=== PATIENT | male | born 1955 | race Caucasian/White ===

== ENCOUNTER 2020-12-19 10:34 | Inpatient (IN) | payer OTHER ==
[~2020-12-19] VITALS: Ht 185.4 cm; Wt 83.0 kg
[~2020-12-19 10:34] MED LIST: ALBU90OI INH; MONT10T PO; NASACORT10.8 ML NS; OFLO.3OTSO BOTHEARS; OMEP20ER PO; SYMBICORT 160-4.6 GM INH; TIOT18 INH; TRAM50 PO; Ventolin Soln3 ML INH
[2020-12-19 11:11] LABS: BASOPHILS PERCENT AUTO 0 % (0-2); EOSINOPHILS PERCENT AUTO 0 % (0-6); Hematocrit 47.2 % (37.0-53.0); Hemoglobin 16.3 g/dL (13.5-17.5); IMMATURE GRAN ABSOLUTE AUTO 0.47 K/mm3 (0.00-0.10); IMMATURE GRAN PERCENT AUTO 2 % (0-1); LYMPHOCYTES ABSOLUTE AUTO 0.81 K/mm3 (0.84-5.20); LYMPHOCYTES PERCENT AUTO 3 % (21-46); MONOCYTES ABSOLUTE AUTO 1.62 K/mm3 (0.16-1.47); MONOCYTES PERCENT AUTO 5 % (4-13); Mean Corpuscular HGB 31.8 pg (26.0-34.0); Mean Corpuscular HGB Conc 34.5 g/dL (31.5-36.5); Mean Corpuscular Volume 92 fL (80-100); Mean Platelet Volume 8.9 fL (9.1-12.4); NEUTROPHILS ABSOLUTE AUTO 28.59 K/mm3 (1.96-9.15); NEUTROPHILS PERCENT AUTO 91 % (41-73); Platelet Count 253 K/mm3 (150-400); RDW Coefficient Variation 13.5 % (11.7-14.2); RDW Standard Deviation 46.4 fL (35.1-46.3); Red Blood Cell Count 5.12 M/mm3 (4.30-5.90); White Blood Cell Count 31.59 K/mm3 (4.00-11.30)
[2020-12-19 11:32] LABS: Alanine Aminotransfer (ALT/SGP 26 U/L (12-78); Albumin, Blood 3.9 g/dL (3.4-5.0); Albumin/Globulin Ratio 1.1 (0.8-1.8); Alk Phos 57 U/L (50-136); Anion Gap 7 mmol/L (6-16); Aspartate Aminotrans (AST/SGOT 27 U/L (12-37); Bilirubin, Total 2.5 mg/dL (0.1-1.0); Blood Urea Nitrogen 23 mg/dL (8-24); Bun/Creatinine Ratio 22.8 (12.0-20.0); CO2, Blood 27 mmol/L (21-32); Calcium, Blood 9.3 mg/dL (8.5-10.1); Chloride, Blood 100 mmol/L (98-108); Creatinine, Blood 1.01 mg/dL (0.60-1.20); Globulin, Blood 3.7 g/dL (2.2-4.0); Glomerular Filtration Rate >60 (60-); Glucose, Blood 108 mg/dL (70-99); Potassium, Blood 4.2 mmol/L (3.5-5.5); Sodium, Blood 134 mmol/L (136-145); Total Protein, Blood 7.6 g/dL (6.4-8.2); Troponin I <0.015 ng/mL (0.000-0.040)
--- NOTE | 2020-12-19 16:31 | NUR ---
SHIFT AND ADMIT SUMMARY PT ARRIVED TO UNIT @ APPROX 1550 VIA GURNEY, ABLE TO STAND AND AMBULATE TO BED c SBA ONLY. PT APPEARS STABLE ON FEET. VSS, ON RA, REPORTS SOME PAIN IN HIS LEFT CHEST BUT HAS IMPROVED SINCE PAIN MEDICATIONS PROVIDED IN ED. LUNG SOUNDS CLEAR/DIMINISHED. DAUGHTER TO BRING HOME CPAP FOR PT. ADMISSION FORMS COMPLETED AND HOME MEDICATIONS REVIEWED c PT. TOX URINE SAMPLE COLLECTED. FLUIDS STARTED PER EMAR. PT IS CURRENTLY RESTING IN BED c CALL LIGHT WITHIN REACH, PT INSTRUCTED ON HOW TO USE CALL SYSTEM.
[2020-12-19 16:57] LABS: U Amphetamine Screen Not Detected; U Barbituate Screen Not Detected; U Benzodiazapine Screen Not Detected; U Buprenorphine Screen Not Detected; U Cannabinoids Screen Not Detected; U Cocaine Screen Not Detected; U Methadone Screen Not Detected; U Methamphetamine Screen Not Detected; U Opiates Screen Not Detected; U Oxycodone Screen Not Detected; U Phencyclidine Screen Not Detected; U Propoxyphene Screen Not Detected
--- NOTE | 2020-12-20 04:10 | NUR ---
RECEIVED PATIENT IN BED. PATIENT IS A&OX4, ABLE TO MAKE NEEDS KNOWN. LUNG SOUNDS DIMINISHED IN ALL QUADRANTS. PATIENT C/O PAIN IN LEFT SIDE CHEST. PRN MEDICATION FOR PAIN ADMINISTERED PER EMAR. PATIENT TOLERATED WELL. PATIENT IS INDEPENDENT AND A STANDBY ASSIST. PATIENT IS MED COMPLIANT. SAFETY MEASURES IN PLACE. WILL CONTINUE TO MONITOR
[2020-12-20 05:00] LABS: BASOPHILS ABSOLUTE AUTO 0.08 K/mm3 (0.00-0.23); BASOPHILS PERCENT AUTO 0 % (0-2); EOSINOPHILS ABSOLUTE AUTO 0.07 K/mm3 (0.00-0.68); EOSINOPHILS PERCENT AUTO 0 % (0-6); Hematocrit 40.5 % (37.0-53.0); Hemoglobin 13.8 g/dL (13.5-17.5); IMMATURE GRAN ABSOLUTE AUTO 0.26 K/mm3 (0.00-0.10); IMMATURE GRAN PERCENT AUTO 1 % (0-1); LYMPHOCYTES ABSOLUTE AUTO 1.36 K/mm3 (0.84-5.20); LYMPHOCYTES PERCENT AUTO 6 % (21-46); MONOCYTES ABSOLUTE AUTO 1.49 K/mm3 (0.16-1.47); MONOCYTES PERCENT AUTO 7 % (4-13); Mean Corpuscular HGB 31.6 pg (26.0-34.0); Mean Corpuscular HGB Conc 34.1 g/dL (31.5-36.5); Mean Corpuscular Volume 93 fL (80-100); Mean Platelet Volume 8.9 fL (9.1-12.4); NEUTROPHILS ABSOLUTE AUTO 18.91 K/mm3 (1.96-9.15); NEUTROPHILS PERCENT AUTO 85 % (41-73); Platelet Count 212 K/mm3 (150-400); RDW Coefficient Variation 13.7 % (11.7-14.2); RDW Standard Deviation 46.5 fL (35.1-46.3); Red Blood Cell Count 4.37 M/mm3 (4.30-5.90); White Blood Cell Count 22.17 K/mm3 (4.00-11.30)
[2020-12-20 05:22] LABS: Alanine Aminotransfer (ALT/SGP 21 U/L (12-78); Albumin/Globulin Ratio 0.9 (0.8-1.8); Alk Phos 51 U/L (50-136); Anion Gap 5 mmol/L (6-16); Aspartate Aminotrans (AST/SGOT 15 U/L (12-37); Bilirubin, Total 2.6 mg/dL (0.1-1.0); Blood Urea Nitrogen 21 mg/dL (8-24); Bun/Creatinine Ratio 18.6 (12.0-20.0); CO2, Blood 27 mmol/L (21-32); Calcium, Blood 8.6 mg/dL (8.5-10.1); Chloride, Blood 103 mmol/L (98-108); Creatinine, Blood 1.13 mg/dL (0.60-1.20); Globulin, Blood 3.3 g/dL (2.2-4.0); Glomerular Filtration Rate >60 (60-); Glucose, Blood 113 mg/dL (70-99); Magnesium, Blood 2.2 mg/dL (1.6-2.4); Potassium, Blood 4.1 mmol/L (3.5-5.5); Sodium, Blood 135 mmol/L (136-145); Total Protein, Blood 6.3 g/dL (6.4-8.2)
--- NOTE | 2020-12-20 18:14 | NUR ---
SHIFT SUMMARY PATIENT IS ALERT AND ORIENTED X4. PATIENT IS INDEPENDENT IN ROOM. PATIENT ABLE TO MAKE NEEDS KNOWN. PATIENT HAS COMPLAINED OF PAIN IN LEFT SIDE OF CHEST RELATED TO PNEUMONIA, MEDICATED PER EMAR WITH TRAMADOL. PATIENT IS MEDICATION COMPLIANT. PATIENT DESIRES TO WALK HALLWAYS DUE TO BEING STIRCRAZY AND BOREDOM. VITAL SIGNS REVIEWED. BED IN LOWEST POSITION. CALL LIGHT IN PLACE.WILL CONTINUE TO MONITOR UNTIL END OF SHIFT.
[2020-12-21 04:57] LABS: BASOPHILS ABSOLUTE AUTO 0.03 K/mm3 (0.00-0.23); BASOPHILS PERCENT AUTO 0 % (0-2); EOSINOPHILS ABSOLUTE AUTO 0.33 K/mm3 (0.00-0.68); EOSINOPHILS PERCENT AUTO 3 % (0-6); Hematocrit 38.9 % (37.0-53.0); Hemoglobin 13.4 g/dL (13.5-17.5); IMMATURE GRAN ABSOLUTE AUTO 0.03 K/mm3 (0.00-0.10); IMMATURE GRAN PERCENT AUTO 0 % (0-1); LYMPHOCYTES ABSOLUTE AUTO 1.09 K/mm3 (0.84-5.20); LYMPHOCYTES PERCENT AUTO 11 % (21-46); MONOCYTES PERCENT AUTO 7 % (4-13); Mean Corpuscular HGB 31.4 pg (26.0-34.0); Mean Corpuscular HGB Conc 34.4 g/dL (31.5-36.5); Mean Corpuscular Volume 91 fL (80-100); Mean Platelet Volume 8.8 fL (9.1-12.4); NEUTROPHILS ABSOLUTE AUTO 7.76 K/mm3 (1.96-9.15); NEUTROPHILS PERCENT AUTO 78 % (41-73); Platelet Count 211 K/mm3 (150-400); RDW Coefficient Variation 13.5 % (11.7-14.2); RDW Standard Deviation 45.9 fL (35.1-46.3); Red Blood Cell Count 4.27 M/mm3 (4.30-5.90); White Blood Cell Count 9.94 K/mm3 (4.00-11.30)
[2020-12-21 05:47] LABS: Alanine Aminotransfer (ALT/SGP 19 U/L (12-78); Albumin, Blood 2.8 g/dL (3.4-5.0); Albumin/Globulin Ratio 0.8 (0.8-1.8); Alk Phos 49 U/L (50-136); Anion Gap 7 mmol/L (6-16); Aspartate Aminotrans (AST/SGOT 13 U/L (12-37); Bilirubin, Total 0.9 mg/dL (0.1-1.0); Blood Urea Nitrogen 21 mg/dL (8-24); CO2, Blood 24 mmol/L (21-32); Chloride, Blood 107 mmol/L (98-108); Creatinine, Blood 0.95 mg/dL (0.60-1.20); Globulin, Blood 3.7 g/dL (2.2-4.0); Glomerular Filtration Rate >60 (60-); Glucose, Blood 99 mg/dL (70-99); Sodium, Blood 138 mmol/L (136-145); Total Protein, Blood 6.5 g/dL (6.4-8.2)
--- NOTE | 2020-12-21 17:30 | NUR ---
END OF SHIFT SUMMARY: PATIENT REPORTED PLEURETIC PAIN IN HIS LEFT CHEST TODAY. MEDICATED PER PRNS. PATIENT DENIED NEED FOR FURTHER INTERVENTION. PATIENT DENIED SHORTNESS OF BREATH, COUGH OR DIFFICULTY BREATHING. PATIENT INDEPENDENT IN THE ROOM WITHOUT SOB. LUNG SOUNDS ARE DIMINISHED AND CLEAR THROUGHOUT. PATIENT REPORTED FEELING MUCH BETTER COMPARED TO WHEN ADMITTED. PATIENT REPORTS THAT HE IS INTERESTED IN QUITTING SMOKING. PROVIDED ENCOURAGEMENT AND EDUCATION ON RESOURCES. PATIENT REPORTS HE FEELS READY FOR DISCHARGE. PATIENT EATING WITHOUT NAUSEA OR ABDOMINAL CRAMPING.
[2020-12-21] MEDS ORDERED: BENZ100A PO (18:39)
[2020-12-21] MEDS ORDERED: GUAI600T33 PO (18:40)
[2020-12-21] MEDS ORDERED: CEPH500 PO (18:41)
[2020-12-21] MEDS ORDERED: LACT PO (18:41)
--- NOTE | 2020-12-21 19:39 | NUR ---
DISCHARGE SUMMARY: 9587 PATIENT READY FOR DISCHARGE. PATIENT DISCHARGE RX FAXED TO [facility] IN [place] PER PATIENT REQUEST. DISCHARGE INSTRUCTIONS AND EDUCATION PROVIDED TO PATIENT. ALL QUESTIONS AND CONCERNS ADDRESSED. VERIFIED WITH DR. CARLSON THAT THE PATIENT SHOULD DISCHARGE ON ANTIBIOTIC. NEW ORDERS RECEIVED. PATIENT DISCHARGED IN WHEELCHAIR WITH RN. PATIENT STABLE AT TIME OF DISCHARGE.
== END 2020-12-21 19:00 | disposition home or self-care (01) | DRG 871 ==
LOC: ER 10:34 → MEDS 14:03
PROVIDERS: Emergency Medicine; Nurse Practitioner Acute Care; Student in an Organized Health Care Education/Training Program; ADMIT Internal Medicine
DX: A40.3 Sepsis due to Streptococcus pneumoniae (principal); J13 Pneumonia due to Streptococcus pneumoniae; M79.7 Fibromyalgia; G47.33 Obstructive sleep apnea (adult) (pediatric); J43.9 Emphysema, unspecified; K21.9 Gastro-esophageal reflux disease without esophagitis; F17.210 Nicotine dependence, cigarettes, uncomplicated; Z99.89 Dependence on other enabling machines and devices; Z98.890 Other specified postprocedural states; Z79.51 Long term (current) use of inhaled steroids; Z79.899 Other long term (current) drug therapy
CPT/HCPCS: 36415; 71046; 71260; 80053; 83605; 83735; 84484; 85025; 87040; 87070; 87186; 87205; 87449; 93005; 93010; 94640; 94664; 94760; 94762; 96365; 96367; 96375; 99285-25; A9270; J0456; J0696; J1650; J2405; J3010; J7030; J7050; Q9967

== ENCOUNTER 2021-10-07 10:41 | Emergency (ER) | payer OTHER ==
[~2021-10-07] VITALS: Ht 182.9 cm; Wt 78.0 kg
[~2021-10-07 10:41] MED LIST changes: +BENZ100A PO; +CEPH500 PO; +GUAI600T33 PO; +LACT PO
[2021-10-07 11:11] LABS: BASOPHILS ABSOLUTE AUTO 0.05 K/mm3 (0.00-0.23); BASOPHILS PERCENT AUTO 1 % (0-2); EOSINOPHILS ABSOLUTE AUTO 0.17 K/mm3 (0.00-0.68); EOSINOPHILS PERCENT AUTO 3 % (0-6); Hematocrit 49.2 % (37.0-53.0); Hemoglobin 16.9 g/dL (13.5-17.5); IMMATURE GRAN ABSOLUTE AUTO 0.01 K/mm3 (0.00-0.10); IMMATURE GRAN PERCENT AUTO 0 % (0-1); LYMPHOCYTES PERCENT AUTO 23 % (21-46); MONOCYTES ABSOLUTE AUTO 0.57 K/mm3 (0.16-1.47); MONOCYTES PERCENT AUTO 9 % (4-13); Mean Corpuscular HGB 31.6 pg (26.0-34.0); Mean Corpuscular HGB Conc 34.3 g/dL (31.5-36.5); Mean Corpuscular Volume 92 fL (80-100); Mean Platelet Volume 8.9 fL (9.1-12.4); NEUTROPHILS ABSOLUTE AUTO 4.01 K/mm3 (1.96-9.15); NEUTROPHILS PERCENT AUTO 65 % (41-73); Platelet Count 318 K/mm3 (150-400); RDW Standard Deviation 43.8 fL (35.1-46.3); Red Blood Cell Count 5.34 M/mm3 (4.30-5.90); White Blood Cell Count 6.21 K/mm3 (4.00-11.30)
[2021-10-07 11:36] LABS: Albumin, Blood 4.5 g/dL (3.4-5.0); Albumin/Globulin Ratio 1.4 (0.8-1.8); Bilirubin, Total 1.1 mg/dL (0.1-1.0); Bun/Creatinine Ratio 15.7 (12.0-20.0); Calcium, Blood 9.7 mg/dL (8.5-10.1); Creatinine, Blood 0.89 mg/dL (0.60-1.20); Globulin, Blood 3.3 g/dL (2.2-4.0); Potassium, Blood 4.4 mmol/L (3.5-5.5); Total Protein, Blood 7.8 g/dL (6.4-8.2)
== END 2021-10-07 14:30 | disposition home or self-care (01) ==
LOC: ER 10:41
PROVIDERS: Physician Assistant
DX: R07.89 Other chest pain (principal); R00.2 Palpitations; J44.9 Chronic obstructive pulmonary disease, unspecified; I10 Essential (primary) hypertension; Z79.899 Other long term (current) drug therapy; F17.210 Nicotine dependence, cigarettes, uncomplicated
CPT/HCPCS: 36415; 71046; 80053; 83690; 83735; 83880; 84484; 85025; 93005; 93010

== ENCOUNTER → 2022-07-11 | Outpatient (CLI) | payer MEDICARE, OTHER ==
[2022-07-11 14:58] LABS: BASOPHILS ABSOLUTE AUTO 0.08 K/mm3 (0.00-0.23); BASOPHILS PERCENT AUTO 1 % (0-2); EOSINOPHILS PERCENT AUTO 2 % (0-6); Hematocrit 48.6 % (37.0-53.0); Hemoglobin 16.6 g/dL (13.5-17.5); IMMATURE GRAN ABSOLUTE AUTO 0.03 K/mm3 (0.00-0.10); IMMATURE GRAN PERCENT AUTO 0 % (0-1); LYMPHOCYTES ABSOLUTE AUTO 1.62 K/mm3 (0.84-5.20); LYMPHOCYTES PERCENT AUTO 16 % (21-46); MONOCYTES ABSOLUTE AUTO 0.74 K/mm3 (0.16-1.47); MONOCYTES PERCENT AUTO 7 % (4-13); Mean Corpuscular HGB Conc 34.2 g/dL (31.5-36.5); Mean Corpuscular Volume 91 fL (80-100); Mean Platelet Volume 8.5 fL (9.1-12.4); NEUTROPHILS ABSOLUTE AUTO 7.52 K/mm3 (1.96-9.15); NEUTROPHILS PERCENT AUTO 74 % (41-73); Platelet Count 337 K/mm3 (150-400); RDW Coefficient Variation 13.4 % (11.7-14.2); RDW Standard Deviation 44.2 fL (35.1-46.3); Red Blood Cell Count 5.36 M/mm3 (4.30-5.90); White Blood Cell Count 10.19 K/mm3 (4.00-11.30)
[2022-07-11 15:06] LABS: Albumin, Blood 4.5 g/dL (3.4-5.0); Albumin/Globulin Ratio 1.2 (0.8-1.8); Bilirubin, Total 0.7 mg/dL (0.1-1.0); Bun/Creatinine Ratio 15.7 (12.0-20.0); Calcium, Blood 9.9 mg/dL (8.5-10.1); Creatinine, Blood 1.02 mg/dL (0.60-1.20); Globulin, Blood 3.8 g/dL (2.2-4.0); Potassium, Blood 4.1 mmol/L (3.5-5.5); Total Protein, Blood 8.3 g/dL (6.4-8.2)
== END | disposition home or self-care (01) ==
LOC: LAB 14:49 → LAB SHORT 14:49
PROVIDERS: Chiropractor
DX: R10.13 Epigastric pain (principal); R06.09 Other forms of dyspnea
CPT/HCPCS: 80053; 83690; 84484; 85025; 85379

== ENCOUNTER → 2023-03-03 | Outpatient (CLI) | payer MEDICARE, OTHER ==
[~2023-03-03] MED LIST changes: +ASPIRIN REGIMEN81 MG PO; +BUDESONIDE-FO10.2 G2 INH; +COMBIVENT RESPIM4 G1 INH; +Prednisone10 MG PO
[2023-03-03 12:27] LABS: BASOPHILS ABSOLUTE AUTO 0.02 K/mm3 (0.00-0.23); BASOPHILS PERCENT AUTO 0 % (0-2); EOSINOPHILS ABSOLUTE AUTO 0.07 K/mm3 (0.00-0.68); EOSINOPHILS PERCENT AUTO 1 % (0-6); Hematocrit 51.4 % (37.0-53.0); Hemoglobin 17.1 g/dL (13.5-17.5); IMMATURE GRAN ABSOLUTE AUTO 0.01 K/mm3 (0.00-0.10); IMMATURE GRAN PERCENT AUTO 0 % (0-1); LYMPHOCYTES ABSOLUTE AUTO 0.78 K/mm3 (0.84-5.20); LYMPHOCYTES PERCENT AUTO 15 % (21-46); MONOCYTES ABSOLUTE AUTO 0.52 K/mm3 (0.16-1.47); MONOCYTES PERCENT AUTO 10 % (4-13); Mean Corpuscular HGB 31.1 pg (26.0-34.0); Mean Corpuscular HGB Conc 33.3 g/dL (31.5-36.5); Mean Corpuscular Volume 94 fL (80-100); Mean Platelet Volume 9.1 fL (9.1-12.4); NEUTROPHILS ABSOLUTE AUTO 3.86 K/mm3 (1.96-9.15); NEUTROPHILS PERCENT AUTO 73 % (41-73); Platelet Count 194 K/mm3 (150-400); RDW Standard Deviation 44.8 fL (35.1-46.3); White Blood Cell Count 5.26 K/mm3 (4.00-11.30)
[2023-03-03 12:38] LABS: Albumin, Blood 4.3 g/dL (3.4-5.0); Bilirubin, Total 0.4 mg/dL (0.1-1.0); Calcium, Blood 9.4 mg/dL (8.5-10.1); Creatinine, Blood 1.21 mg/dL (0.60-1.20); Globulin, Blood 4.1 g/dL (2.2-4.0); Potassium, Blood 4.1 mmol/L (3.5-5.5); Total Protein, Blood 8.4 g/dL (6.4-8.2)
== END ==
LOC: LAB SHORT 12:23 → LAB 12:23
PROVIDERS: Physician Assistant
DX: R00.2 Palpitations (principal)
CPT/HCPCS: 80053; 84484; 85025

== ENCOUNTER 2023-03-05 08:43 | Inpatient (IN) | payer MEDICARE, OTHER ==
[~2023-03-05] VITALS: Ht 185.4 cm; Wt 69.0 kg
[~2023-03-05 08:43] MED LIST changes: -ASPIRIN REGIMEN81 MG PO; -BUDESONIDE-FO10.2 G2 INH; -COMBIVENT RESPIM4 G1 INH; -Prednisone10 MG PO
[2023-03-05 09:05] LABS: BASOPHILS ABSOLUTE AUTO 0.03 K/mm3 (0.00-0.23); BASOPHILS PERCENT AUTO 0 % (0-2); EOSINOPHILS PERCENT AUTO 0 % (0-6); Hematocrit 47.6 % (37.0-53.0); IMMATURE GRAN ABSOLUTE AUTO 0.03 K/mm3 (0.00-0.10); IMMATURE GRAN PERCENT AUTO 0 % (0-1); LYMPHOCYTES PERCENT AUTO 17 % (21-46); MONOCYTES ABSOLUTE AUTO 0.83 K/mm3 (0.16-1.47); MONOCYTES PERCENT AUTO 9 % (4-13); Mean Corpuscular HGB 31.1 pg (26.0-34.0); Mean Corpuscular HGB Conc 33.6 g/dL (31.5-36.5); Mean Corpuscular Volume 93 fL (80-100); Mean Platelet Volume 9.1 fL (9.1-12.4); NEUTROPHILS ABSOLUTE AUTO 6.96 K/mm3 (1.96-9.15); NEUTROPHILS PERCENT AUTO 74 % (41-73); Platelet Count 218 K/mm3 (150-400); RDW Coefficient Variation 12.8 % (11.7-14.2); RDW Standard Deviation 44.2 fL (35.1-46.3); Red Blood Cell Count 5.14 M/mm3 (4.30-5.90); White Blood Cell Count 9.45 K/mm3 (4.00-11.30)
[2023-03-05 09:11] LABS: Bicarbonate Venous 24.3 mmol/L (24.0-30.0); PCO2 Venous 61.5 mmHg (38-42); pH Blood Venous 7.29 (7.34-7.37)
[2023-03-05] MEDS ORDERED: Prednisone10 MG PO (09:13)
[2023-03-05] MEDS ORDERED: MONT10T PO (09:14)
[2023-03-05] MEDS ORDERED: COMBIVENT RESPIM4 G1 INH (09:14)
[2023-03-05] MEDS ORDERED: BUDESONIDE-FO10.2 G2 INH (09:14)
[2023-03-05] MEDS ORDERED: TRAM50 PO (09:14)
[2023-03-05] MEDS ORDERED: ASPIRIN REGIMEN81 MG PO (09:15)
[2023-03-05 09:16] LABS: Albumin, Blood 3.8 g/dL (3.4-5.0); Bilirubin, Total 0.4 mg/dL (0.1-1.0); Bun/Creatinine Ratio 25.4 (12.0-20.0); Calcium, Blood 9.2 mg/dL (8.5-10.1); Creatinine, Blood 0.83 mg/dL (0.60-1.20); Globulin, Blood 3.9 g/dL (2.2-4.0); Magnesium, Blood 1.9 mg/dL (1.6-2.4); Potassium, Blood 4.3 mmol/L (3.5-5.5); Total Protein, Blood 7.7 g/dL (6.4-8.2)
[2023-03-05 10:02] LABS: Influenza A, PCR POSITIVE (NEGATIVE); Influenza B, PCR NEGATIVE (NEGATIVE); Resp Syncytial Virus, PCR NEGATIVE (NEGATIVE); SARS-Cov-2 (COVID-19) PCR, MMC NEGATIVE (NEGATIVE)
[2023-03-05 14:15] VITALS: BP 147/95
[2023-03-05] MEDS ORDERED: OMEP20ER PO (14:20)
--- NOTE | 2023-03-05 14:55 | NUR ---
PATIENT ADMIT TO PCU 05 AT 1405. ABLE TO STAND AND TRANSFER WITH ONE PERSON ASSIST TO HELP MANAGE LINES/CORDS. DENIES HEADACHE/VISION CHANGES. PERRLA. DENIES NUMBNESS/TINGLING. MOVING ALL EXTREMITIES WNL. NO DEFICITS NOTED. ON BIPAP SETTINGS 8/4 AT 25% FIO2 SATING HIGH 90'S. EVEN RESPIRATIONS. SOB WITH TALKING AND MOVING AROUND. PATIENT STATES AT BASELINE HE WEARS 1L BLEED INTO CPAP AT NIGHT. DAUGHTER TO BRING IN HOME CPAP. OCCASIONAL PRODUCTIVE MOIST/LOOSE COUGH. NEEDING SPUTUM SAMPLE. TELE SHOWING SR WITH HR 60-80'S. DENIES CHEST PAIN/PRESSURE/PALPITATIONS. DENIES ANY KNOWN CARDIAC HISTORY. BP STABLE. PPP. NO SIGNS OF EDEMA. DENIES ABDOMINAL PAIN/NAUSEA. CURRENTLY NPO AT THIS TIME. BOWEL TONES PRESENT. PATIENT STATES HE NORMALLY EATS AND DRINKS WITH NO SWALLOWING ISSUES. USING URINAL. DENIES ISSUES WITH VOIDING. SKIN OVERALL PALE AND WARM TO TOUCH. SCATTERED BRUISING AND RAISED MOLES COVERING CHEST AND BACK. THIS RN SPOKE WITH DORIE ON PHONE TO GIVE UPDATE. THIS RN ABLE TO COMPLETE MED REC WITH DORIE OVER PHONE. CALL LIGHT IN REACH. PATIENT UPDATED ON PCU AND HOSP POLICY. PATIENT REQUESTING DNR CODE STATUS, DNR BAND PLACED ON LEFT WRIST. LR INFUSING PER EMAR.
[2023-03-05 15:09] VITALS: BP 140/82
[2023-03-05 16:00] LABS: Base Excess Venous 2.6 mmol/L; Bicarbonate Venous 25.4 mmol/L (24.0-30.0); pH Blood Venous 7.39 (7.34-7.37)
--- NOTE | 2023-03-05 18:00 | NUR ---
SHIFT SUMMARY: RT IN TO ASSESS PATIENT AND ABLE TO TITRATE DOWN TO 2L NASAL CANNULA FOR EXTENDED PERIOD OF TIME. DURING THIS TIME PATIENT ABLE TO EAT AND DRINK WATER. PATIENT WORK OF BREATHING RECENTLY INCREASED, AND BIPAP REPLACED BY THIS RN, RT UPDATED. USING URINAL TO VOID IND. FAN PLACED IN ROOM FOR COMFORT. NO TELE EVENTS, REMAINS SR WITH HR 70-80'S. DENIES PAIN. LR CONTINUES TO INFUSE. CALL LIGHT IN REACH. DENIES NEEDS AT THIS TIME.
--- NOTE | 2023-03-05 18:34 | NUR ---
PATIENT COMPLAINS OF 2/10 HEADACHE AND 4/10 CHRONIC SHOULDER PAIN. MEDICATED PER EMAR FOR PAIN. BIPAP REMAINS IN PLACE. PATIENT COMPLAINS OF JUST FEELING UNCOMFORTABLE. MORE PILLOWS PROVIDED FOR SUPPORT. CALL LIGHT IN REACH.
[2023-03-05 20:02] VITALS: BP 127/89
[2023-03-05 23:44] VITALS: BP 136/76
[2023-03-06 03:29] VITALS: BP 152/99
[2023-03-06 04:01] LABS: Hemoglobin 15.1 g/dL (13.5-17.5); Mean Corpuscular HGB 31.4 pg (26.0-34.0); Mean Corpuscular HGB Conc 34.3 g/dL (31.5-36.5); Mean Corpuscular Volume 92 fL (80-100); Mean Platelet Volume 9.7 fL (9.1-12.4); Platelet Count 187 K/mm3 (150-400); RDW Coefficient Variation 12.8 % (11.7-14.2); RDW Standard Deviation 43.2 fL (35.1-46.3); Red Blood Cell Count 4.81 M/mm3 (4.30-5.90); White Blood Cell Count 5.08 K/mm3 (4.00-11.30)
[2023-03-06 04:19] LABS: Bun/Creatinine Ratio 25.2 (12.0-20.0); Calcium, Blood 9.2 mg/dL (8.5-10.1); Creatinine, Blood 0.71 mg/dL (0.60-1.20)
--- NOTE | 2023-03-06 04:40 | NUR ---
SHIFT SUMMARY THIS RN ASSUMED CARE OF PATIENT AT 1900. PT A&O X4. ABLE TO MAKE NEEDS KNOWN. WORE BIPAP FOR MOST OF THE NIGHT BUT REQUESTED FREQUENT BREAKS OF AT LEAST AN HOUR. PT ON 2L VIA NC WITH SPO2 >92%. NO RESPIRATORY DISTRESS NOTED. TACHYPNEA NOTED AT BEGINNING OF SHIFT WHEN PATIENT APPEARED MORE ANXIOUS. OTHERWISE RR 14-18 MOST OF THE SHIFT. DYSPNEA NOTED WITH EXERTION. PT ABLE TO SPEAK IN FULL SENTENCES. OCCASIONAL ACCESSORY MUSCLE USE. PRN BREATHING TREATMENTS. PT MEDICATED WITH PRN PO ANXIETY MEDICATION; REFUSED IV ANXIETY MEDICATION. THIS RN EDUCATED PT ON ANXIETY/COPD. PT CONTINUED TO DECLINE NEED FOR ATIVAN. BP STABLE. SR WITH HR 60'S. AFEBRILE. GUILLEN. PPP. ABLE TO REPOSITION SELF AND INDEPENDENT WITH URINAL USE. BED IN LOWEST POSITION AND CALL LIGHT WITHIN REACH. THIS RN WILL REPORT TO ONCOMING DAYSHIFT RN.
[2023-03-06 05:17] LABS: BAND PERCENT MAN 3 % (0-8); BASOPHILS PERCENT MAN 0 % (0-2); EOSINOPHILS PERCENT MAN 0 % (0-6); LYMPHOCYTES % ATYPICAL MANUAL 1 % (0-0); LYMPHOCYTES PERCENT MAN 7 % (21-46); MONOCYTES ABSOLUTE MAN 0.35 K/mm3 (0.16-1.47); MONOCYTES PERCENT MAN 7 % (4-13); NEUTROPHILS ABSOLUTE MAN 4.31 K/mm3 (1.96-9.15); SEG NEUTROPHILS PERCENT MAN 82 % (41-73); TOTAL CELLS COUNTED 100
[2023-03-06 08:00] VITALS: BP 147/83
[2023-03-06 12:12] VITALS: BP 156/91
[2023-03-06 15:25] VITALS: BP 155/95
--- NOTE | 2023-03-06 19:27 | NUR ---
END OF SHIFT PT A&O X4. VSS. SPO2 > 92% ON 2L NC. BREATHING TXs PER RT. MONITOR SHOWING SR, HR 60s-80s. PT UP TO CHAIR MOST OF DAY, ABLE TO AMBULATE INTO BATHROOM W/ 1 PERSON ASSIST. NO EVENTS THIS SHIFT.
[2023-03-06 20:37] VITALS: BP 149/100
[2023-03-07] VITALS (8 sets, daily range): BP systolic 151–171; BP diastolic 89–105
[2023-03-07 04:12] LABS: BASOPHILS ABSOLUTE AUTO 0.02 K/mm3 (0.00-0.23); BASOPHILS PERCENT AUTO 0 % (0-2); EOSINOPHILS PERCENT AUTO 0 % (0-6); Hematocrit 45.9 % (37.0-53.0); Hemoglobin 15.7 g/dL (13.5-17.5); IMMATURE GRAN ABSOLUTE AUTO 0.03 K/mm3 (0.00-0.10); IMMATURE GRAN PERCENT AUTO 0 % (0-1); LYMPHOCYTES ABSOLUTE AUTO 0.66 K/mm3 (0.84-5.20); LYMPHOCYTES PERCENT AUTO 6 % (21-46); MONOCYTES ABSOLUTE AUTO 0.51 K/mm3 (0.16-1.47); MONOCYTES PERCENT AUTO 5 % (4-13); Mean Corpuscular HGB Conc 34.2 g/dL (31.5-36.5); Mean Corpuscular Volume 91 fL (80-100); Mean Platelet Volume 9.3 fL (9.1-12.4); NEUTROPHILS ABSOLUTE AUTO 9.62 K/mm3 (1.96-9.15); NEUTROPHILS PERCENT AUTO 89 % (41-73); Platelet Count 244 K/mm3 (150-400); RDW Coefficient Variation 12.9 % (11.7-14.2); RDW Standard Deviation 42.9 fL (35.1-46.3); Red Blood Cell Count 5.06 M/mm3 (4.30-5.90); White Blood Cell Count 10.84 K/mm3 (4.00-11.30)
[2023-03-07 04:33] LABS: Bun/Creatinine Ratio 27.1 (12.0-20.0); Calcium, Blood 9.4 mg/dL (8.5-10.1); Creatinine, Blood 0.7 mg/dL (0.60-1.20); Potassium, Blood 4.2 mmol/L (3.5-5.5)
--- NOTE | 2023-03-07 05:07 | NUR ---
SHIFT SUMMARY PT A&O X4. ABLE TO MAKE NEEDS KNOWN. PT APPEARED MORE ANXIOUS DURING THIS SHIFT THAN PREVIOUS NOC SHIFT. PRN PO MEDICATIONS GIVEN. PT EDUCATED CONSISTENTLY ABOUT COPD AND ANXIETY MANAGEMENT. PT REFUSING BREATHING TREATMENTS FROM RT. RT EDUCATED PT REGARDING MEDICATIONS. PT CONTINUES TO REFUSE DESPITE EDUCATION. PT NOW ON 4-5L VIA NC WHILE AWAKE. CPAP FOR NOC. PT USING URINAL INDEPENDENTLY. PT HAVING ANXIETY AND INCREASED SOB WITH EXERTION AND URINAL USE. OTHERWISE OTHER VITALS STABLE. OCCASIONAL WHEEZING/TIGHTNESS NOTED IN LS, OTHERWISE LS DIM T/O. BED IN LOWEST POSITION AND CALL LIGHT WITHIN REACH. THIS RN WILL REPORT TO ONCOMING DAYSHIFT RN.
[2023-03-07 08:41] LABS: Base Excess Venous 9.9 mmol/L; Bicarbonate Venous 29.9 mmol/L (24.0-30.0); PCO2 Venous 54.2 mmHg (38-42); pH Blood Venous 7.41 (7.34-7.37)
--- NOTE | 2023-03-07 10:24 | NUR ---
CARE ASSUMPTION PT A&O X4, ANXIOUS THIS AM. SPO2 > 92% ON 4L NC. 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 PT AGREEABLE TO WEAR CPAP, CPAP PLACED. MD VARGAS W/ ORDER FOR VBG, PRN PO HYDROXIZINE & PALLIATIVE CARE. UPON RETURN TO W/ HYDROXIZINE, PT STATING "I SHOULD HAVE WORN THIS CPAP SOONER. I FEEL BETTER ALREADY." PT REMARKING MULTIPLE TIMES "I SHOULD HAVE DONE ALL OF THIS SOONER. I SHOULDN'T HAVE SAID NO." PT APPEARS MORE CALM IN RM & BREATHING MORE COMFORTABLY W/ CPAP IN PLACE.
--- NOTE | 2023-03-07 18:06 | NUR ---
END OF SHIFT PT A&O X4. PT LESS ANXIOUS REST OF THE SHIFT, PRN PO HYDROXYZINE GIVEN PER EMAR X2 THIS SHIFT. PT SITTING UP IN CHAIR MAJORITY OF DAY. PT MEDICATED FOR PAIN PER EMAR X1 THIS SHIFT FOR PAIN IN "BACK & EVERYWHERE" W/ PT STATING "I HAVE FIBROMYALGIA, SO EVERYTHING ACHES." PT REPORTING FEELING "PERFECT" UPON PAIN REASSESSMENT AFTER MEDICATION. PT SPO2 > 92% ON 2-4L NC THIS SHIFT & INTERMITTENTLY WEARING CPAP. MONITOR SHOWING SR, HR 70s-90s.
[2023-03-08 03:55] VITALS: BP 146/101
[2023-03-08 04:00] LABS: BASOPHILS ABSOLUTE AUTO 0.02 K/mm3 (0.00-0.23); BASOPHILS PERCENT AUTO 0 % (0-2); EOSINOPHILS PERCENT AUTO 0 % (0-6); Hematocrit 43.6 % (37.0-53.0); Hemoglobin 14.9 g/dL (13.5-17.5); IMMATURE GRAN ABSOLUTE AUTO 0.06 K/mm3 (0.00-0.10); IMMATURE GRAN PERCENT AUTO 0 % (0-1); LYMPHOCYTES ABSOLUTE AUTO 0.64 K/mm3 (0.84-5.20); LYMPHOCYTES PERCENT AUTO 5 % (21-46); MONOCYTES ABSOLUTE AUTO 0.53 K/mm3 (0.16-1.47); MONOCYTES PERCENT AUTO 4 % (4-13); Mean Corpuscular HGB 31.2 pg (26.0-34.0); Mean Corpuscular HGB Conc 34.2 g/dL (31.5-36.5); Mean Corpuscular Volume 91 fL (80-100); Mean Platelet Volume 9.2 fL (9.1-12.4); NEUTROPHILS ABSOLUTE AUTO 12.12 K/mm3 (1.96-9.15); NEUTROPHILS PERCENT AUTO 91 % (41-73); Platelet Count 251 K/mm3 (150-400); RDW Coefficient Variation 12.9 % (11.7-14.2); RDW Standard Deviation 43.7 fL (35.1-46.3); Red Blood Cell Count 4.77 M/mm3 (4.30-5.90); White Blood Cell Count 13.37 K/mm3 (4.00-11.30)
[2023-03-08 04:15] LABS: Calcium, Blood 9.3 mg/dL (8.5-10.1); Creatinine, Blood 0.71 mg/dL (0.60-1.20); Potassium, Blood 4.2 mmol/L (3.5-5.5)
--- NOTE | 2023-03-08 05:21 | NUR ---
SHIFT SUMMARY NO ACUTE CHANGES OVERNIGHT. PT WITH LESS ANXIETY DURING THIS SHIFT THAN PREVIOUS NOC SHIFT. PT AGREEABLE TO BREATHING TREATMENTS AND ANXIETY MEDICATIONS. VITALS STABLE. 2-4L VIA NC NEEDED WHILE AWAKE. PT WEARING CPAP WHILE SLEEPING. NEURO INTACT, CALLING APPROPRIATELY. BED IN LOWEST POSITION AND CALL LIGHT WITHIN REACH. THIS RN WILL REPORT TO ONCOMING DAYSHIFT RN.
[2023-03-08 07:41] VITALS: BP 155/100
--- NOTE | 2023-03-08 09:50 | NUR ---
AM NOTE: PATIENT ALERT AND ORIENTED. VERY ANXIOUS, REQUESTING BUSPAR THIS AM. PERRLA. DENIES NUMBNESS/TINGLING. UP WITH ONE PERSON ASSIST. PATIENT VERY SOB WITH ANY EXCERTION. TELE SHOWING SR WITH HR 80-90'S. DENIES CHEST PAIN/PRESSURE/PALPITATIONS. BP STABLE. PPP. NO EDEMA NOTED. WEARING CPAP THIS AM UPON SHIFT START WITH 4L O2 BLEED IN. TITRATED TO 3L SATING MID 90'S. RR 18-24. SOB WITH ANY EXCERTION. PATIENT USING CPAP NEEDED IND. DR. VARGAS BY THIS AM, PLAN FOR CHEST XRAY THIS AFTERNOON. BOWEL TONES PRESENT. EATING AND VOIDING WNL. DENIES ABDOMINAL PAIN/NAUSEA. PATIENT COMPLAINS OF FEELING LIKE HE IS STARTING TO GET A SORE THROAT FROM POST NASAL DRIP. DR. VARGAS AWARE. SKIN SCATTERED WITH RAISED MOLES ACROSS CHEST AND BACK. SCATTERED BRUISING. PATIENT DENIES WANTING TO WEAR GOWN. CALL LIGHT IN REACH. DENIES NEEDS AT THIS TIME. SITTING UP IN RECLINER ON PERSONAL CELLPHONE. IV ABX INFUSED THIS AM.
[2023-03-08 12:05] VITALS: BP 155/103
[2023-03-08 15:23] VITALS: BP 167/101
[2023-03-08 16:11] VITALS: BP 147/102
--- NOTE | 2023-03-08 16:45 | NUR ---
PATIENT UP WALKING AROUND ROOM WITH 3L NASAL CANNULA SATING WITHIN NORMAL LIMITS. DENIES PAIN. USING CPAP NEEDED. PATIENT STATES HE IS FEELING REALLY GOOD. HR 80-90'S. BLOOD PRESSURE SLIGHTLY ELEVATED SBP 140'S AND DBP 100'S. DENIES NEEDS AT THIS TIME. SITTING UP IN RECLINER USING PERSONAL CELLPHONE.
[2023-03-08 21:36] VITALS: BP 157/108
[2023-03-09] VITALS (10 sets, daily range): BP systolic 129–179; BP diastolic 77–115
[2023-03-09 03:40] LABS: BASOPHILS ABSOLUTE AUTO 0.01 K/mm3 (0.00-0.23); BASOPHILS PERCENT AUTO 0 % (0-2); EOSINOPHILS PERCENT AUTO 0 % (0-6); Hematocrit 42.9 % (37.0-53.0); Hemoglobin 14.9 g/dL (13.5-17.5); IMMATURE GRAN ABSOLUTE AUTO 0.13 K/mm3 (0.00-0.10); IMMATURE GRAN PERCENT AUTO 1 % (0-1); LYMPHOCYTES ABSOLUTE AUTO 0.54 K/mm3 (0.84-5.20); LYMPHOCYTES PERCENT AUTO 4 % (21-46); MONOCYTES ABSOLUTE AUTO 0.52 K/mm3 (0.16-1.47); MONOCYTES PERCENT AUTO 4 % (4-13); Mean Corpuscular HGB 31.4 pg (26.0-34.0); Mean Corpuscular HGB Conc 34.7 g/dL (31.5-36.5); Mean Corpuscular Volume 91 fL (80-100); NEUTROPHILS ABSOLUTE AUTO 13.27 K/mm3 (1.96-9.15); NEUTROPHILS PERCENT AUTO 92 % (41-73); Platelet Count 283 K/mm3 (150-400); RDW Coefficient Variation 12.9 % (11.7-14.2); RDW Standard Deviation 42.6 fL (35.1-46.3); Red Blood Cell Count 4.74 M/mm3 (4.30-5.90); White Blood Cell Count 14.47 K/mm3 (4.00-11.30)
[2023-03-09 04:06] LABS: Bun/Creatinine Ratio 35.6 (12.0-20.0); Calcium, Blood 9.1 mg/dL (8.5-10.1); Creatinine, Blood 0.7 mg/dL (0.60-1.20); Potassium, Blood 4.1 mmol/L (3.5-5.5)
--- NOTE | 2023-03-09 04:53 | NUR ---
SHIFT SUMMARY: A&OX4. INTERMITTENT ANXIETY DURING THIS SHIFT. COOPERATIVE WITH ANXIETY MEDICATIONS, REPORTS GOOD RELIEF WITH ANXIETY MEDS. DENIES ANY CHEST PAIN. REOPORTS "TIGHTNESS IN CHEST" WHILE ANXIOUS, IMPROVES WITH ANXIETY MEDICATIONS. HR IS SR IN 80'S. BP'S CONTINUE TO BE HYPERTENSIVE. REPORTS SOB THAT HAS NOT WORSTENED. O2 SATS MAINTAINED > 90% ON 3 LPM WHILE AWAKE, CPAP WITH BLEED IN 3 WHILE SLEEPING. CALL LIGHT IN REACH. BED IN LOW POSITION.
--- NOTE | 2023-03-09 12:00 | NUR ---
AM NOTE: PATIENT ALERT AND ORIENTED. MOVING ABOUT ROOM IND. DENIES NUMBNESS/TINGLING. PERRLA. PATIENT COMPLAINS OF GENERALIZED BODY PAIN, ULTRAM GIVEN PER EMAR. PATIENT HAS INTERMIT ANXIETY, PRN MEDS GIVEN. ANXIETY SURROUNDING SOB. TELE SHOWING SR WITH HR 80-100'S. DENIES CHEST PAIN/PRESSURE/PALPITATIONS. BP SLIGHTLY ELEVATED. SC LOVENOX GIVEN PER EMAR. IV ABX INFUSED THIS AM. ON 3L NASAL CANNULA SATING 90-94%. HOME CPAP AT BEDSIDE, PATIENT USING NEEDED AND AT NOC. EVEN RESPIRATIONS. SOB WITH MOVEMENT AND ANXIETY. LUNGS SOUNDS DIMINISHED AND AT TIMES TIGHT. RT IN TO GIVE BREATHING TREATMENTS. BOWEL TONES PRESENT. EATING AND VOIDING WNL. DENIES ABDOMINAL PAIN/NAUSEA. IV SALINE LOCKED. PATIENT UP IN RECLINER WATCHING TV AND EATING LUNCH AT THIS TIME. DENIES NEEDS. CALL LIGHT IN REACH.
--- NOTE | 2023-03-09 12:28 | NUR ---
THIS RN CALLED DR. VARGAS ABOUT PATIENTS ELEVATED BLOOD PRESSURES. NO NEW ORDERS FOR THIS RN TO PLACE. DR. VARGAS TO PLACE ORDERS.
--- NOTE | 2023-03-09 17:26 | NUR ---
SHIFT SUMMARY: PATIENT REMAINS ALERT AND ORIENTED THROUGHOUT SHIFT. PRN ANXIETY MEDICATIONS NEEDED. PATIENT IS MUCH CALMER THIS EVENING AND STATES HE IS FEELING GREAT. REMAINS ON 3L NASAL CANNULA, USING HOME CPAP NEEDED. NO TELE EVENTS THIS SHIFT. REMAINS SR WITH HR 80-90'S. CURRENT BP STABLE. EATING AND VOIDING WNL. BOWEL MOVEMENT X1 THIS SHIFT. ASSISTED BED BATH COMPLETED. DENIES NEEDS AT THIS TIME. CURRENTLY SITTING IN RECLINER EATING DINNER. CALL LIGHT IN REACH.
[2023-03-10 04:07] VITALS: BP 155/103
[2023-03-10 04:38] LABS: BASOPHILS ABSOLUTE AUTO 0.01 K/mm3 (0.00-0.23); BASOPHILS PERCENT AUTO 0 % (0-2); EOSINOPHILS PERCENT AUTO 0 % (0-6); Hematocrit 49.2 % (37.0-53.0); Hemoglobin 16.7 g/dL (13.5-17.5); IMMATURE GRAN ABSOLUTE AUTO 0.21 K/mm3 (0.00-0.10); IMMATURE GRAN PERCENT AUTO 1 % (0-1); LYMPHOCYTES PERCENT AUTO 3 % (21-46); MONOCYTES ABSOLUTE AUTO 0.59 K/mm3 (0.16-1.47); MONOCYTES PERCENT AUTO 4 % (4-13); Mean Corpuscular HGB 31.2 pg (26.0-34.0); Mean Corpuscular HGB Conc 33.9 g/dL (31.5-36.5); Mean Corpuscular Volume 92 fL (80-100); Mean Platelet Volume 8.9 fL (9.1-12.4); NEUTROPHILS ABSOLUTE AUTO 15.17 K/mm3 (1.96-9.15); NEUTROPHILS PERCENT AUTO 92 % (41-73); Platelet Count 352 K/mm3 (150-400); RDW Coefficient Variation 12.9 % (11.7-14.2); RDW Standard Deviation 43.4 fL (35.1-46.3); Red Blood Cell Count 5.35 M/mm3 (4.30-5.90); White Blood Cell Count 16.48 K/mm3 (4.00-11.30)
--- NOTE | 2023-03-10 04:50 | NUR ---
SHIFT SUMMARY: A/Ox4 AND COOPERATIVE WITH CARE. ANSWERS QUESTIONS APPROPRIATELY AND ABLE TO MAKE HIS NEEDS KNOWN. NO ACUTE EVENTS OVERNIGHT FOR PT WAS ABLE TO SLEEP T/O MOST OF THE NIGHT. CARDIAC, REMAINS IN SR 80-90'S WITH NO REPORTS OF CP OR PRESSURE T/O THE NIGHT. SBP HAS BEEN MORE CONTROLLED RANGING 140-150'S. PRN HYDRALAZINE ORDERED. RESPIRATORY, MAINTAINS SPO2 90-94% ON 3L VIA NC. REPORTS INTERMITTENT EPISODES OF SOB EITHER WHEN TALKING FOR SOME TIME OR WITH MODERATE EXERTION. CONTINUES TO HAVE MOIST, NON-PRODUCTIVE COUGH. REPORTS INCREASED ANXIETY WITH BREATHING TREATMENTS. ANXIETY WELL CONTROLLED WITH PRN MEDICATIONS. GI/, ABLE TO INDEPENDENTLY WALK TO THE BATHROOM TO VOID. NO BM REPORTED THIS SHIFT. DENIES ANY N/V/D WELL. POSSIBLE D/C HOME THIS AM. ASSESSED PT FOR RISKS OF ANY IGNITION SOURCES WELL BEHAVIORS FOR INCREASED RISKS OF FIRE DANGER. PT EDUCATED ON COMMON SOURCES OF IGNITION WELL NEED TO KEEP A SAFE ENVIRONMENT. PT VOICED UNDERSTANDING. NO NEW ORDERS AT THIS TIME, WILL REPORT TO ONCOMING RN. DEYANIRA LAWSON OF THIS NOTE
[2023-03-10 04:59] LABS: Bun/Creatinine Ratio 43.4 (12.0-20.0); Calcium, Blood 9.5 mg/dL (8.5-10.1); Creatinine, Blood 0.72 mg/dL (0.60-1.20); Potassium, Blood 4.8 mmol/L (3.5-5.5)
[2023-03-10 08:43] VITALS: BP 150/101
[2023-03-10] MEDS ORDERED: ACET325 PO (11:13)
[2023-03-10] MEDS ORDERED: AMLO5 PO (11:14)
[2023-03-10] MEDS ORDERED: FLONASE SENSIM5.9 M1 (11:15)
[2023-03-10] MEDS ORDERED: GUAI600T33 PO (11:16)
[2023-03-10] MEDS ORDERED: Nicoderm Cq1 EAC1 TOP (11:17)
[2023-03-10] MEDS ORDERED: Vistaril25 MG PO (11:17)
[2023-03-10] MEDS ORDERED: HIGH POTENCY P1 EAC2 PO (11:19)
[2023-03-10] MEDS ORDERED: BUSP5 PO (11:19)
[2023-03-10] MEDS ORDERED: CEPH500 PO (11:20)
[2023-03-10] MEDS ORDERED: Prednisone10 MG PO (11:21)
--- NOTE | 2023-03-10 12:55 | NUR ---
DISCHARGE: HOME O2 EVAL COMPLETED. PT HAS BEEN CLEARED FOR DISCHARGE. ALL IV ACCESS DC'd WNL. PT DRESSES SELF. DC PAPERWORK AND INSTRUCTIONS PROVIDED, ALL QUESTIONS ANSWERED. PT ESCORTED FROM UNIT VIA W/C W/OUT INCIDENT.
== END 2023-03-10 13:08 | disposition home or self-care (01) | DRG 871 ==
LOC: ER 08:43 → PCU 11:12
PROVIDERS: Emergency Medicine; ADMIT Family Medicine
PROC: 5A09357 Assistance with Respiratory Ventilation, Less than 24 Consecutive Hours, Continuous Positive Airway Pressure (ICD-10-PCS; principal; 2023-03-05)
PROC: 3E03329 Introduction of Other Anti-infective into Peripheral Vein, Percutaneous Approach (ICD-10-PCS; 2023-03-05)
DX: A41.9 Sepsis, unspecified organism (principal); J10.00 Influenza due to other identified influenza virus with unspecified type of pneumonia; J96.01 Acute respiratory failure with hypoxia; J96.02 Acute respiratory failure with hypercapnia; J44.1 Chronic obstructive pulmonary disease with (acute) exacerbation; E87.20 Acidosis, unspecified; J44.0 Chronic obstructive pulmonary disease with (acute) lower respiratory infection; R65.20 Severe sepsis without septic shock; Z66 Do not resuscitate; D72.829 Elevated white blood cell count, unspecified; G47.30 Sleep apnea, unspecified; F17.210 Nicotine dependence, cigarettes, uncomplicated; M79.7 Fibromyalgia; T38.0X5A Adverse effect of glucocorticoids and synthetic analogues, initial encounter; F41.9 Anxiety disorder, unspecified; Z99.81 Dependence on supplemental oxygen; Z79.82 Long term (current) use of aspirin; Z79.51 Long term (current) use of inhaled steroids; Z79.52 Long term (current) use of systemic steroids; Z11.52 Encounter for screening for COVID-19
CPT/HCPCS: 0241U; 36415; 71045; 71046; 80048; 80053; 82803; 83605; 83735; 83880; 84484; 85025; 87040; 87070; 87205; 93005; 93010; 94640; 94644; 94660; 94664; 94760; 94761; 94762; 96361; 96365; 96367; 96375; 99285-25; A9270; J0360; J0456; J0696; J1650; J2060; J2930; J3475; J7030; J7050; J7120

== ENCOUNTER 2023-03-11 11:57 | Emergency (ER) | payer MEDICARE, OTHER ==
[~2023-03-11] VITALS: Ht 185.4 cm; Wt 74.8 kg
[~2023-03-11 11:57] MED LIST changes: +ACET325 PO; +AMLO5 PO; +ASPIRIN REGIMEN81 MG PO; +BUDESONIDE-FO10.2 G2 INH; +BUSP5 PO; +COMBIVENT RESPIM4 G1 INH; +FLONASE SENSIM5.9 M1; +HIGH POTENCY P1 EAC2 PO; +Nicoderm Cq1 EAC1 TOP; +Prednisone10 MG PO; +Vistaril25 MG PO
[2023-03-11 12:34] LABS: BASOPHILS ABSOLUTE AUTO 0.03 K/mm3 (0.00-0.23); BASOPHILS PERCENT AUTO 0 % (0-2); EOSINOPHILS ABSOLUTE AUTO 0.07 K/mm3 (0.00-0.68); EOSINOPHILS PERCENT AUTO 0 % (0-6); Hematocrit 51.7 % (37.0-53.0); Hemoglobin 17.7 g/dL (13.5-17.5); IMMATURE GRAN ABSOLUTE AUTO 0.15 K/mm3 (0.00-0.10); IMMATURE GRAN PERCENT AUTO 1 % (0-1); LYMPHOCYTES ABSOLUTE AUTO 1.64 K/mm3 (0.84-5.20); LYMPHOCYTES PERCENT AUTO 9 % (21-46); MONOCYTES ABSOLUTE AUTO 1.73 K/mm3 (0.16-1.47); MONOCYTES PERCENT AUTO 9 % (4-13); Mean Corpuscular HGB 31.3 pg (26.0-34.0); Mean Corpuscular HGB Conc 34.2 g/dL (31.5-36.5); Mean Corpuscular Volume 92 fL (80-100); Mean Platelet Volume 8.7 fL (9.1-12.4); NEUTROPHILS ABSOLUTE AUTO 15.33 K/mm3 (1.96-9.15); NEUTROPHILS PERCENT AUTO 81 % (41-73); Platelet Count 398 K/mm3 (150-400); RDW Coefficient Variation 12.9 % (11.7-14.2); RDW Standard Deviation 43.8 fL (35.1-46.3); Red Blood Cell Count 5.65 M/mm3 (4.30-5.90); White Blood Cell Count 18.95 K/mm3 (4.00-11.30)
[2023-03-11 12:53] LABS: Albumin, Blood 3.5 g/dL (3.4-5.0); Albumin/Globulin Ratio 0.9 (0.8-1.8); Bilirubin, Total 0.6 mg/dL (0.1-1.0); Bun/Creatinine Ratio 38.9 (12.0-20.0); Calcium, Blood 9.2 mg/dL (8.5-10.1); Creatinine, Blood 0.85 mg/dL (0.60-1.20); Globulin, Blood 3.7 g/dL (2.2-4.0); Potassium, Blood 4.5 mmol/L (3.5-5.5); Total Protein, Blood 7.2 g/dL (6.4-8.2)
[2023-03-11 13:35] VITALS: BP 127/106
== END 2023-03-11 14:03 | disposition home or self-care (01) ==
LOC: ER 11:57
PROVIDERS: Physician Assistant
DX: J44.9 Chronic obstructive pulmonary disease, unspecified (principal); I35.0 Nonrheumatic aortic (valve) stenosis; M79.7 Fibromyalgia; F17.210 Nicotine dependence, cigarettes, uncomplicated; Z79.52 Long term (current) use of systemic steroids; Z79.51 Long term (current) use of inhaled steroids; Z79.82 Long term (current) use of aspirin; Z79.899 Other long term (current) drug therapy
CPT/HCPCS: 71046; 80053; 83880; 84484; 85025; 93005; 93010; 99285-25; A9270; J7512

== ENCOUNTER → 2023-06-18 | Outpatient (CLI) | payer MEDICARE, OTHER | LOC: LAB 11:27 → LAB SHORT 11:27 | DX: J34.0 Abscess, furuncle and carbuncle of nose (principal) | CPT/HCPCS: 87070; 87077; 87147; 87186 ==

== ENCOUNTER → 2025-01-30 | Outpatient (CLI) | payer OTHER | LOC: LAB 12:56 | DX: R06.00 Dyspnea, unspecified (principal) ==